=== PATIENT | female | born 1975 | race Caucasian/White ===

== ENCOUNTER 2016-07-07 11:05 | Outpatient (CLI) | payer MEDICAID | END 2016-07-07 11:06 | disposition home or self-care (01) | DX: R07.9 Chest pain, unspecified (principal); M25.551 Pain in right hip ==

== ENCOUNTER 2016-08-27 21:20 | Emergency (ER) | payer MEDICAID ==
[2016-08-27] MEDS ORDERED: LIDOCAINE 1%-EPI 1:100000 20 ML MDV ONE (21:25)
[2016-08-27] MEDS ORDERED: TETANUS/DIPHTHERIA/PERTUSSIS 0.5 ML SYRINGE IM ONE ×2 (21:26→21:29)
== END 2016-08-27 21:49 | disposition home or self-care (01) ==
DX: S81.011A Laceration without foreign body, right knee, initial encounter (principal); W25.XXXA Contact with sharp glass, initial encounter; F17.200 Nicotine dependence, unspecified, uncomplicated; R03.0 Elevated blood-pressure reading, without diagnosis of hypertension

== ENCOUNTER 2016-11-26 17:21 | Emergency (ER) | payer MEDICAID ==
--- NOTE | 2016-11-26 18:05 | ED Physician Documentation ---
PD HPI LOWER EXT INJURY - Stated complaint Stated Complaint: L HIP INJ - Chief complaint Chief Complaint: Ext Problem - History obtained from History obtained from: Patient - History of Present Illness PD HPI LOW EXT INJURY LOCATION: Left, Hip, Buttock Type of injury: Fall (from horse yesterday onto left gluteal area. Pain with sitting and palpation. Does not hurt for standing.) Timing - onset: Yesterday Timing - details: Abrupt onset, Still present Associated symptoms: No: Weakness, Numbness, Tingling, Discolored Similar symptoms before: Has not had sx before Recently seen: Not recently seen Review of Systems Skin: denies: Rash, Lesions, Abrasion (s), Laceration (s) Musculoskeletal: reports: Extremity pain (left gluteal and posterior hip) Neurologic: denies: Focal weakness, Numbness PD PAST MEDICAL HISTORY - Past Medical History Past Medical History: No Other Past Medical History: left kidney removed for donation, cervical cancer - Past Surgical History 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 - Present Medications Home Medications: Ambulatory Orders Medication Instructions Recorded Confirmed Hydrocodone/Acetaminophen [[place] 1 each PO Q6H PRN #20 tablet 11/26/16 5-325 Tablet] Ibuprofen [Motrin] 600 mg PO TID #20 tab 11/26/16 Methocarbamol [Robaxin] 500 mg PO Q6H PRN #25 tablet 11/26/16 - Allergies Allergies/Adverse Reactions: Allergies Allergy/AdvReac Type Severity Reaction Status Date / Time No Known Drug Allergies Allergy Verified 04/28/14 18:30 - Social History Does the pt smoke?: Yes Smoking Status: Current every day smoker Does the pt drink ETOH?: Yes Does the pt have substance abuse?: No - Immunizations Immunizations are current?: No Immunizations: TDAP >10years/unknown PD ED PE NORMAL - Vitals Vital signs reviewed: Yes - General General: Alert and oriented X 3, Well developed/nourished, Other (seems uncomfortable with sitting onto left gluteal. No pain with just standing. ) - Back Back: No CVA TTP, No spinal TTP - Derm Derm: Normal color, Warm and dry - Extremities Extremities: Other (left gluteal and ischial ramus area with tenderness, no noted firmness nor bruising. ) - Neuro Neuro: Alert and oriented X 3, No motor deficit, No sensory deficit Results - Vitals Vitals: Vital Signs - 24 hr 11/26/16 11/26/16 17:25 19:21 Temperature 36.6 C 36.7 C Heart Rate 95 89 Respiratory 16 20 Rate Blood Pressure 134/92 H 122/87 H O2 Saturation 98 100 Oxygen O2 Source Room air PD MEDICAL DECISION MAKING - ED course Complexity details: reviewed results (pelvis without fractures.), considered differential, d/w patient Departure - Departure Disposition: 01 Home, Self Care Clinical Impression: Animal-rider injured by fall from or being thrown from horse in noncollision accident, initial encounter Contusion, buttock Qualifiers: Encounter type: initial encounter Qualified Code(s): S30.0XXA - Contusion of lower back and pelvis, initial encounter Condition: Stable Record reviewed to determine appropriate education?: Yes Instructions: ED Contusion Lower Ext Follow-Up: Aleida Weston ARNP [Primary Care Provider] - Prescriptions: Ibuprofen [Motrin] 600 mg PO TID #20 tab Hydrocodone/Acetaminophen [[place] 5-325 Tablet] 1 each PO Q6H PRN #20 tablet PRN Reason: Pain Methocarbamol [Robaxin] 500 mg PO Q6H PRN #25 tablet PRN Reason: Spasms Comments: Iburpofen 3 times daily. Gentle range of motion and stretching for the gluteal muscles. Robaxin muscle relaxant for stiffness as needed. Add Tylenol or hydrocodone as needed for pains. Should improve over the next days/week. Progress activity and use as able. Discharge Date/Time: 11/26/16 19:21
[2016-11-26] MEDS ORDERED: HYDROcod/ACETAM 5/325 MG TABLET PO STA (18:14)
[2016-11-26] MEDS ORDERED: HYDROcod/ACET 5/325 Prepack 6 PO ONE ×2 (18:14→18:23)
[2016-11-26] MEDS ORDERED: HYDROcod/ACETAM 5/325 MG TABLET ONE (18:22)
[2016-11-26] MEDS ORDERED: METHOCARBAMOL 500 MG TABLET PO STA (19:00)
[2016-11-26] MEDS ORDERED: METHOCARBAMOL 500 MG TABLET PO ONE (19:05)
--- NOTE | 2016-11-26 19:22 | XRAY Preliminary Report ---
Exam: XR Pelvis 1 View IMPRESSION: No evidence of acute fracture. [facility] SITE ID: [id number]
[2016-11-26 19:23] VITALS: BP 122/87
--- NOTE | 2016-11-26 19:25 | XRAY Report ---
EXAM: PELVIS RADIOGRAPHY EXAM DATE: 11/26/2016 06:58 PM. CLINICAL HISTORY: Fell from horse, gluteal/ramus area pain. COMPARISON: None. TECHNIQUE: 1 view. FINDINGS: Bones: No evidence of acute fracture. There is right hemisacralization of L5, with pseudoarthrosis fo rmation. Joints: The visualized hip, pubis symphysis, and sacroiliac joints are preserved. No subluxation. Soft Tissues: Normal. No soft tissue swelling. IMPRESSION: No evidence of acute fracture. [facility] Referring Provider Line: [phone] SITE ID: [id number]
== END 2016-11-26 19:21 | disposition home or self-care (01) ==
LOC: ED 17:21
DX: S30.0XXA Contusion of lower back and pelvis, initial encounter (principal); M25.552 Pain in left hip; V80.010A Animal-rider injured by fall from or being thrown from horse in noncollision accident, initial encounter; Y93.52 Activity, horseback riding; F17.200 Nicotine dependence, unspecified, uncomplicated
CPT/HCPCS: 72170; 99283; A9270

== ENCOUNTER 2020-12-08 08:00 | Outpatient (CLI) | payer MEDICAID, OTHER ==
[2020-12-08 15:02] LABS: FECAL OCCULT BLOOD (FIT) NEGATIVE (NEGATIVE)
== END 2020-12-08 23:59 | disposition home or self-care (01) ==
LOC: LAB.R 08:00
PROVIDERS: ATTEND Physician Assistant
DX: R19.7 Diarrhea, unspecified (principal)
CPT/HCPCS: 81599; 82274; 87045; 87046; 87177; 87209; 87427; 87493

== ENCOUNTER 2021-05-08 19:30 | Emergency (ER) | payer OTHER ==
--- NOTE | 2021-05-08 19:56 | ED Physician Documentation ---
PD HPI CHEST PAIN - Stated complaint Stated Complaint: HIGH BLOOD PRESSURE,HEADACHE - Chief complaint Chief Complaint: Cardiac - History obtained from History obtained from: Patient - Additional information Additional information: 46-year-old woman with history of migraines, hysterectomy, and has donated a kidney presents with 2 weeks of intermittent frontal headaches that are milder than her usual migraines. There is no associated nausea or light sensitivity. No neck stiffness. Today she felt a left upper anterior chest twinge that was nonradiating. More pressure than pain. It is very focal near the left clavicle. And she noticed her blood pressures being higher than normal in the 170/110 range. She does check her blood pressure on occasion at home and it usually runs in the 130/70 range. No recent kidney function testing because of lack of insurance. 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 - Present Medications Home Medications: Ambulatory Orders Medication Instructions Recorded Confirmed lisinopriL [Zestril] 5 mg PO DAILY #30 tablet 05/08/21 - Allergies Allergies/Adverse Reactions: Allergies Allergy/AdvReac Type Severity Reaction Status Date / Time No Known Drug Allergies Allergy Verified 04/28/14 18:30 - Social History Does the pt smoke?: Yes Smoking Status: Current every day smoker Does the pt drink ETOH?: Yes Does the pt have substance abuse?: No - Immunizations Immunizations are current?: No Immunizations: TDAP >10years/unknown PD ED PE NORMAL - Vitals Vital signs reviewed: Yes - General General: Alert and oriented X 3, No acute distress - HEENT HEENT: PERRL, EOMI - Neck Neck: Supple, no meningeal sign, No bony TTP - Cardiac Cardiac: RRR, No murmur - Respiratory Respiratory: No respiratory distress, Clear bilaterally - Abdomen Abdomen: Non tender - Back Back: No CVA TTP, No spinal TTP - Derm Derm: Normal color, Warm and dry - Extremities Extremities: No edema, No calf tenderness / cord - Neuro Neuro: Alert and oriented X 3, Normal speech Results - Vitals Vitals: Vital Signs - 24 hr 05/08/21 05/08/21 05/08/21 19:33 19:41 20:24 Temperature 36.8 C Heart Rate 100 81 Respiratory 18 12 Rate Blood Pressure 177/129 H 163/99 H 139/112 H O2 Saturation 97 99 Oxygen O2 Source Room air - EKG (time done) 1945 Rate: Rate (enter#) (94) Rhythm: NSR [place]: Normal Intervals: Normal [place] QRS: Normal Ischemia: Normal ST segments Computer interpretation: Agree with computer - Labs Labs: Laboratory Tests 05/08/21 20:16 Sodium 136 Potassium 3.8 Chloride 99 L Carbon Dioxide 26 Anion Gap 11.0 BUN 20 Creatinine 0.7 Estimated GFR (MDRD) 91 Glucose 99 Calcium 10.5 H PD MEDICAL DECISION MAKING - ED course ED course: 46-year-old woman presents with 2 weeks of intermittent headaches that sound like tension headaches. Nothing in the history to suggest a malignant or dangerous cause to the headaches. Today she has had blood pressures that are higher than usual for her but without signs or symptoms consistent with endorgan damage. She has donated kidney in the past so we will check renal function. EKG is normal. On telemetry her blood pressure came down, but still remained above 140/90. Her renal function is excellent. Even prior to this episode, her blood pressures were borderline it is reasonable to start her on a low-dose of lisinopril. Departure - Departure Disposition: 01 Home, Self Care Clinical Impression: Essential (primary) hypertension, Single functional kidney Condition: Good Record reviewed to determine appropriate education?: Yes Instructions: ED Hypertension New Begin Tx, ED Diet Low Salt 2Gm Prescriptions: lisinopriL [Zestril] 5 mg PO DAILY #30 tablet Comments: You were seen today for headaches and elevated blood pressure. Examination is unremarkable otherwise unremarkable. Your lab work is reassuring despite having donated your kidney. Your creatinine is 0.7 and your GFR is 91, both excellent numbers even for someone with 2 functioning kidneys. We are starting very low- dose of lisinopril for your blood pressure, if your blood pressure starts to run low, please discontinue it. Follow-up with your primary care physician, next available appointment.
[2021-05-08 20:26] VITALS: BP 139/112
[2021-05-08 20:29] LABS: CALCIUM 10.5 mg/dL (8.5-10.3); CREATININE 0.7 mg/dL (0.4-1.0); POTASSIUM 3.8 mmol/L (3.5-5.0)
[2021-05-08] MEDS ORDERED: lisinopriL 5 MG TABLET PO STA (20:39)
== END 2021-05-08 20:47 | disposition home or self-care (01) ==
LOC: ED 19:30
DX: I10 Essential (primary) hypertension (principal); Z90.5 Acquired absence of kidney; F17.200 Nicotine dependence, unspecified, uncomplicated
CPT/HCPCS: 36415; 80048; 93005; 99283; 99284; A9270

== ENCOUNTER 2021-07-08 09:52 | Outpatient (CLI) | payer OTHER ==
[2021-07-08 10:30] LABS: BASOPHILS # (AUTO) 0.1 10^3/uL (0.0-0.1); BASOPHILS % (AUTO) 1.1 %; EOSINOPHILS # (AUTO) 0.2 10^3/uL (0.0-0.7); EOSINOPHILS % (AUTO) 3.4 %; HCT - HEMATOCRIT 42.4 % (37.0-47.0); HGB - HEMOGLOBIN 14.4 g/dL (12.0-16.0); LYMPHOCYTES % (AUTO) 37.3 %; MEAN CORPUSCULAR HEMOGLOBIN 28.2 pg (27.0-31.0); MEAN PLATELET VOLUME 9.1 fL (7.9-10.8); MONOCYTES # (AUTO) 0.4 10^3/uL (0.0-1.0); MONOCYTES % (AUTO) 7.3 %; NEUTROPHILS # (AUTO) 2.7 10^3/uL (1.5-6.6); NEUTROPHILS % (AUTO) 50.9 %; PLT - PLATELET COUNT 280 10^3/uL (130-450); RED BLOOD COUNT 5.11 10^6/uL (4.20-5.40); RED CELL DISTRIBUTION WIDTH 13.1 % (12.0-15.0); WHITE BLOOD COUNT 5.4 x10^3/uL (4.8-10.8)
[2021-07-08 10:51] LABS: ALBUMIN 4.7 g/dL (3.2-5.5); ALBUMIN/GLOBULIN RATIO 1.4 (1.0-2.2); ALKALINE PHOSPHATASE 62 IU/L (42-121); ALT ALANINE AMINOTRANSFERASE 17 IU/L (10-60); AST ASPARTATE AMINOTRANSFERASE 18 IU/L (10-42); BILIRUBIN,TOTAL 0.5 mg/dL (0.2-1.0); BUN - BLOOD UREA NITROGEN 14 mg/dL (6-20); CHOL/HDL RATIO 3.7 (<4.4); CHOLESTEROL 252 mg/dL; CREATININE 0.7 mg/dL (0.4-1.0); GFR - MDRD 91 (>89); HDL CHOLESTEROL 68 mg/dL; LDL CHOLESTEROL,CALCULATED 157 mg/dL; LDL/HDL RATIO 2.3 (<4.4); THYROID STIMULATING HORMONE 1.48 uIU/mL (0.34-5.60); TOTAL PROTEIN 8.1 g/dL (6.7-8.2); TRIGLYCERIDES 136 mg/dL; VLDL CHOLESTEROL 27 mg/dL
[2021-07-08 10:57] LABS: CALCIUM 9.8 mg/dL (8.5-10.3); CARBON DIOXIDE - CO2 25 mmol/L (21-32); CHLORIDE 102 mmol/L (101-111); GLUCOSE 103 mg/dL (70-100); POTASSIUM 4.1 mmol/L (3.5-5.0); SODIUM 138 mmol/L (135-145)
[2021-07-08 11:20] LABS: FOLLICLE STIMULATING HORMONE 86.47 mIU/mL
== END 2021-07-08 09:53 | disposition home or self-care (01) ==
LOC: LAB 09:52
PROVIDERS: ATTEND Obstetrics & Gynecology
DX: N95.1 Menopausal and female climacteric states (principal); Z79.899 Other long term (current) drug therapy; Z13.29 Encounter for screening for other suspected endocrine disorder
CPT/HCPCS: 36415; 80053; 80061; 81599; 83001; 83520; 83721; 84443; 85025

== ENCOUNTER 2021-09-11 13:17 | Outpatient (CLI) | payer OTHER ==
--- NOTE | 2021-09-12 13:38 | Mammography Report ---
BILATERAL DIGITAL SCREENING MAMMOGRAM 3D/2D WITH EXAGGERATED CC: 09/11/2021 CLINICAL: Routine screening. Baseline Exam. Family history of breast cancer. No prior exams were available for comparison. There are scattered fibroglandular elements in both br easts. No significant masses, calcifications, or other findings are seen in either breast. IMPRESSION: NEGATIVE There is no mammographic evidence of malignancy. A 1 year screening mammogram is recommended. This exam was interpreted at Station ID: [id number]. NOTE: For mammograms, a report in lay terms will be sent to the patient. Approximately 15% of breast malignancies will not be visualized mammographically. In the management of a palpable breast mass, a negative mammogram must not discourage biopsy of a clinically suspicious lesion. Electronically Signed By: Cornelius Goyal M.D. [facility] – [place]:09/12/2021 08:07:28 ACR BI-RADS Category 1: Negative 3341F PARENCHYMAL PATTERN: (A) - The breast(s) demonstrate(s) scattered fibroglandular densities. BI-RADS CATEGORY: (1) - 1 RECOMMENDATION: (ANNUAL) - Recommend routine annual screening mammography. [id number] 1 year screening LATERALITY: (B)
== END 2021-09-11 13:18 | disposition home or self-care (01) ==
LOC: DI.S 13:17
PROVIDERS: ATTEND Obstetrics & Gynecology
DX: Z12.31 Encounter for screening mammogram for malignant neoplasm of breast (principal); Z80.3 Family history of malignant neoplasm of breast